=== PATIENT | male | born 1970 | race Caucasian/White ===

== ENCOUNTER 2021-10-20 13:23 | Outpatient (CLI) | payer OTHER, SELFPAY ==
--- NOTE | ~2021-10-20 | US_ITS ---
EXAMINATION: US soft tissue head and neck DATE: 10/20/2021 13:56 INDICATION: Right submandibular mass. TECHNIQUE: Multiple grayscale and Doppler ultrasound images of the neck were obtained. COMPARISON: None FINDINGS: There are normal-sized lymph nodes in right neck in the patient's area of concern. IMPRESSION: 1. Normal sized lymph nodes in right neck in the patient's area of concern. Reviewed, dictated and finalized at location A. [employer]
== END 2021-10-20 13:24 | disposition home or self-care (01) ==
LOC: ANHIMG 13:25
PROVIDERS: PCP Emergency Medicine; Visit Provider Emergency Medicine
DX: R22.1 Localized swelling, mass and lump, neck (principal)
CPT/HCPCS: 76536

== ENCOUNTER 2023-10-14 08:03 | Emergency (ER) | payer OTHER, SELFPAY ==
--- NOTE | ~2023-10-14 | CT_ITS ---
EXAMINATION: CT abdomen pelvis wo con DATE: 10/14/2023 10:17 INDICATION: Flank pain TECHNIQUE: Computed tomography (CT) of the abdomen and pelvis was performed without intravenous contr ast. The dose-length product (DLP) was 956.02 mGy-cm. Automated exposure control and iterative recons truction technique were employed. COMPARISON: None FINDINGS: Minimal dependent atelectasis is present in the lung bases. The heart size is normal. The l iver, spleen, pancreas, gallbladder, and adrenal glands are normal. There is a 4 mm stone of the prox imal right ureter causing mild hydronephrosis. There is a 12 mm cyst of the left kidney upper pole. T here is a 1.3 cm mass of the left mid kidney measuring 65 Hounsfield units. No pathologically enlarge d abdominal or pelvic lymph nodes are identified. No free intraperitoneal gas or evidence of bowel ob struction. There is mild lumbar spondylosis. IMPRESSION: 1. 4 mm stone of the proximal right ureter causing mild hydronephrosis. 2. Indeterminate 1.3 cm mass of the left mid kidney which could reflect proteinaceous or hemorrhagic cyst however, nonemergent follow-up CT or MRI without and with contrast is recommended. Reviewed, dictated and finalized at location L. [employer] IMPRESSION: 1. 4 mm stone of the proximal right ureter causing mild hydronephrosis. 2. Indeterminate 1.3 cm mass of the left mid kidney which could reflect protein aceous or hemorrhagic cyst however, nonemergent follow-up CT or MRI without and with contrast is recommended.
[2023-10-14 08:07] VITALS: BP 148/93; PULSE 60; RESP 18; TEMP 36.7; O2SAT 99
--- NOTE | 2023-10-14 08:34 | ED.GENADULT ---
HPI - General Adult General Chief complaint: Urogenital-Male Stated complaint: kidney stone? Time Seen by Provider: 10/14/23 08:18 History of Present Illness HPI narrative: 53-year-old male presenting to the emergency department for evaluation of right flank pain. Patient reports that the pain started this morning. Patient states the pain does radiate around to his right lower quadrant. Patient denies any prior history of kidney stone. Patient does have associated nausea. Related Data Allergies Allergy/AdvReac Type Severity Reaction Status Date / Time No Known Allergies Allergy Mild Verified 10/05/22 13:08 Review of Systems Review of Systems: All systems reviewed & are unremarkable except as noted in HPI and below [facility] Surgical History Surgical History (Updated 11/05/22 @ 13:46 by Arely Foster MA) H/O Achilles tendon repair 1983 Family History Family History (Updated 06/28/14 @ 07:13 by DOCTOR UNKNOWN) Father Hypertension Family history of elevated blood lipids Social History Social History Smoking status: Never smoker Alcohol intake: current Exam Narrative: APPEARANCE: Uncomfortable appearing due to flank pain HEAD: normocephalic, atraumatic. EYES: PERRLA/EOMI, conjunctivae clear. NOSE: Normal no drainage EARS:TMS clear with good light reflex. THROAT: Pharynx clear, no exudate. NECK: Supple. No adenopathy, no masses. RESPIRATORY: Airway patent, respirations nonlabored. Clear to auscultation bilaterally, no rales, rhonchi, wheezing. CARDIOVASCULAR: Regular rate and rhythm without murmurs rubs or gallops. ABDOMINAL: Soft, nontender, nondistended, normal bowel sounds MUSCULOSKELETAL: Moves all extremities. Strength/ROM intact, No edema, No calf tenderness. NEURO: Alert. Cranial nerves II through XII intact. Good gait. Good coordination SKIN: Warm, dry. Normal Color Course Course Emergency Course: 53-year-old male presents to the ED for evaluation of right flank pain. Zofran and Dilaudid ordered for nausea and for pain control. Patient reports that his pain is controlled after treatment. Patient was afebrile with no leukocytosis and a stable hemoglobin. patient did have elevated troponin of 2.1 but patient was treated with 1 L of normal saline. Patient did have elevated red blood cells on his UA and a CT was ordered to evaluate for ureteral calculi. Patient does have a 4 mm proximal ureteral calculi on the right. Patient and family were updated on the results of the workup and patient was provided medications for nausea control and pain control for home. Patient was also provided Flomax. Patient was encouraged to have close follow-up with Urology. All questions concerns were addressed patient was comfortable the plan for discharge and close follow-up. Patient was educated on reasons to return to the emergency department. patient was also updated on the incidental finding of the cyst on the left kidney and patient was encouraged to have close follow-up with his primary care physician for additional outpatient imaging. Vital Signs Vital signs: Vital Signs Temperature 98.1 F 10/14/23 08:07 Pulse Rate 60 10/14/23 08:07 Respiratory Rate 18 10/14/23 08:07 Blood Pressure 148/93 H 10/14/23 08:07 Pulse Oximetry 99 10/14/23 08:07 Oxygen Delivery Room Air 10/14/23 08:07 Temperature 98.1 F 10/14/23 08:07 Pulse Rate 60 10/14/23 11:23 Respiratory Rate 17 10/14/23 11:23 Blood Pressure 152/83 H 10/14/23 11:23 Pulse Oximetry 99 10/14/23 11:23 Oxygen Delivery Room Air 10/14/23 08:07 Medical Decision Making Differential Diagnosis Differential Diagnosis: Ureteral calculi, urinary tract infection, diverticulitis, colitis Vital Signs Vital Signs: Vital Signs Temperature 98.1 F 10/14/23 08:07 Pulse Rate 60 10/14/23 08:07 Respiratory Rate 18 10/14/23 08:07 Blood Pressure 148/93 H 10/14/23 08:07 Pulse Oximetry 99 1
[2023-10-14] MEDS: ONDANSETRON INJ 4 MG/2 ML VIAL IV PUSH (08:45)
[2023-10-14] MEDS: HYDROmorphone HCL INJ (*CRX) 1 MG/ML SYR 0.5 MG IV PUSH (08:45)
[2023-10-14 09:09] LABS: Basophils Absolute Auto 0.1 K/mm3 (0.0-0.1); Basophils Percent Auto 0.5 % (0.2-1.2); Eosinophils Absolute Auto 0.1 K/mm3 (0-0.3); Eosinophils Percent Auto 1.1 % (0-4.4); Hematocrit 47.5 % (42.0-52.0); Hemoglobin 15.7 g/dL (14.0-18.0); Immature Granulocyte Absolute 0.04 K/mm3 (0.00-0.031); Immature Granulocyte Percent A 0.4 % (0-0.5); Lymphocytes Absolute Auto 1.48 K/mm3 (0.9-3.2); Lymphocytes Percent Auto 14.9 % (18.3-44.2); Mean Corpuscular HGB Conc 33.1 g/dl (32-36); Mean Corpuscular Hemoglobin 29.9 pg (26-34); Mean Corpuscular Volume 90.5 fl (80-100); Mean Platelet Volume 9.6 fl (7.4-10.4); Monocytes Absolute Auto 0.8 K/mm3 (0.1-0.6); Monocytes Percent Auto 7.6 % (2.6-8.5); Neutrophils Absolute Auto 7.5 K/mm3 (1.3-6.7); Neutrophils Percent Auto 75.5 % (45.5-73.1); Platelet Count Result 271 k/mm3 (150-375); Red Blood Count 5.25 M/mm3 (4.6-6.20); White Blood Count 9.9 K/mm3 (4.5-10.0)
[2023-10-14 09:16] LABS: Alanine Aminotransferase 32 U/L (6-50); Albumin Level 4.6 g/dL (3.5-5.1); Alkaline Phosphatase 80 U/L (38-126); Anion Gap 9 mmol/L (8-16); Aspartate Amino Transferase 28 U/L (17-59); Blood Urea Nitrogen 15 mg/dL (9-20); Calcium 9.4 mg/dL (8.4-10.2); Carbon Dioxide 27 mmol/L (22-30); Chloride 103 mmol/L (98-107); Estimated CRCL calculation 81 ml/min; Estimated Glomerular Filt Rate > 60; Glucose 117 mg/dL (65-110); Potassium 3.5 mmol/L (3.4-5.0); Sodium 139 mmol/L (137-145)
[2023-10-14 09:17] LABS: Lactic Acid Reflex 2.1 mmol/L (0.7-2.0)
[2023-10-14] MEDS: SODIUM CHLORIDE 0.9% IV 1,000 ML 999 ML IV CONT (09:34)
[2023-10-14 09:49] LABS: Appearance Urine Clear (Clear); Bacteria Urine None Seen /hpf; Bilirubin Urine Negative (Negative); Blood Urine 3+ (Negative); Color Urine Yellow (Yellow); Glucose Urine UA Negative (Negative); Ketones Urine Negative (Negative); Leukocyte Esterase Ur Negative LEU/UL (Negative); Nitrate Urine Negative (Negative); Non Pathogenic Casts 0-2; Protein Urine 1+ mg/dL (Negative); RBC Urine >100 /hpf (0-2); Specific Grav Ur 1.015 (1.001-1.035); Squamous Epithelial Cell Urine None seen /hpf (Few); Urobilinogen Urine 0.2 mg/dL (<2.0); WBC Urine 0-5 /hpf
[2023-10-14 09:59] LABS: Add Urine Microscopic? YES
[2023-10-14] MEDS: TAMSULOSIN HCL 0.4 MG CAPSULE PO (11:16)
[2023-10-14] MEDS: HYDROcodone/acetaminophen (*CRX) 5-325 MG TABLET 1 TAB PO (11:16)
[2023-10-14 11:23] VITALS: BP 152/83; PULSE 60; RESP 17; O2SAT 99
[2023-10-14 11:59] LABS: Reflex Lactic Acid Yes or No Add Lactic
== END 2023-10-14 11:24 | disposition home or self-care (01) ==
PROVIDERS: Emergency Provider Emergency Medicine; PCP Emergency Medicine
DX: N13.2 Hydronephrosis with renal and ureteral calculous obstruction (principal); N28.89 Other specified disorders of kidney and ureter
CPT/HCPCS: 36415; 74176; 80053; 81001; 83605; 85025; 96361; 96374; 96375; 99284; A9270; J1170; J2405; J7030